=== PATIENT | male | born 1990 | race Caucasian/White ===

== ENCOUNTER 2017-01-09 18:00 | Emergency (ER) | payer SELFPAY ==
[~2017-01-09] VITALS: Ht 188 cm; Wt 102.9 kg
[~2017-01-09 18:00] MED LIST: CHLO0.12 MT; IMTUNK; ISOT40CA8 PO
[2017-01-09 18:02] VITALS: TEMP 36.9; Ht 188 cm; Wt 102.9 kg
--- NOTE | 2017-01-09 18:40 | EMERGENCY ROOM VISIT NOTE ---
History Report prepared by Amy: nAibal Stokes Under the Supervision of: Dr. Charlene Ledesma D.O. First contact with patient: 18:06 Chief Complaint: ILLNESS Stated Complaint: RASH,ITCHING,COUGHING,TIREDNESS History of Present Illness The patient is a 26 year old male who presents to the Emergency Room with complaints of worsening rashes that began a week ago. He states that he began to experience a productive cough with yellow mucous, congestion, aching sensation, and feet pain for almost three weeks. The patient states that around a week ago he noticed lumps on the side of his and balls of his feet. He states that he also noticed waxing/ waning pruritic rashes to his biceps, forearms, and sides of his abdomen. The patient states that the rash does not form until around noon when he notices red dots and erythema. He states that around 1400, a purple line forms. The patient states that the abdominal rash is worsening and the erythema around the rash waxes and wanes. He states that he noticed his wrist developed a rash last night and this morning. He states that he used Cortisone and DayQuil/ NyQuil, but denies any relief of symptoms. He states that he his worried his symptoms are due to Gout since he has a family history of Gout. The patient denies that the lumps are worsened or change with his diet. He admits that he has also been experiencing eye lid swelling for the last four years, which he had seen nine optometrists for. 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 He states that he fishes every week and checks for ticks frequently. The patient also states that he goes to the gym every day. He admits to occasionally drinking alcohol. The patient denies any family history of autoimmune diseases. He is accompanied by his mother who states that he had normal shots as a child. The patient denies bug bites, tick bites, being around someone sick, headache, fever, chills , change in vision, chest pain, joint pain or swelling, shortness of breath, nausea, vomiting, diarrhea, pain with urination, and melena. Source of History: patient, parent (mother) Onset: a week ago Position: arm (bilateral), abdomen Quality: other (pruritic) Timing: worsening Modifying Factors (Relieving): other (Cortisone, NyQuil, DayQuil) Associated Symptoms: + cough, No fevers, No chills, No headache, No chest pain, No SOB, No nausea, No vomiting, No melena, No diarrhea, No urinary symptoms Note: Swelling of eyelids, lumps in feet bilaterally, general achiness. Review of Systems See HPI for pertinent positives & negatives. A total of 10 systems reviewed and were otherwise negative. Past Medical & Surgical Medical Problems: (1) Head trauma (2) Hypertension Family History Diabetes mellitus FHx: cancer Gallbladder disease Gout Heart disease Hypertension Kidney disease Kidney stones Lung disease Seizures Social History Smoking Status: Never Smoker Alcohol Use: occasionally Drug Use: none Marital Status: single Housing Status: lives alone Occupation Status: unemployed Current/Historical Medications Scheduled PRN Coohxpjghulzerre-Oeapehcvhj-Wl (Vicks Nyquil Cold & Flu), 1 DOSE PO QPM PRN for COLD/FLU Dextromethorphan-Phenylephrine (Vicks Dayquil Cold & Flu), 1 CAP PO QAM PRN for COLD/FLU Allergies Coded Allergies: No Known Allergies (Unverified , 08/14/11) Physical Exam Vital Signs Date Time Temp Pulse Resp B/P (MAP) Pulse Ox O2 Delivery O2 Flow Rate FiO2 01/09/17 19:46 71 16 139/74 98 01/09/17 18:02 36.9 74 20 138/86 96 Room Air Physical Exam GENERAL: alert, well appearing, well nourished, no distress, non-toxic EYE EXAM: normal conjunctiva, PERRL and EOM's grossly intact OROPHARYNX: no exudate, no erythema, lips, buccal mucosa, and tongue normal and mucous membranes are moist NECK: supple, no nuchal rigidity, no adenopathy, non-tender LUNGS: Clear to auscultation. Normal chest wall mechanics HEART: no murmurs, S1 normal and S2 normal ABDOMEN: abdomen soft, non-tender, normo-active bowel sounds, no masses, no rebound or guarding. BACK: Back is symmetrical on inspection and there is no deformity, no midline tenderness, no CVA tenderness. SKIN: Blotchy, circular, macular, erythematous rash to his bilateral proximal upper extremities along the medial. His left is greater than the right. There is mild central clearing. No vesicles, petechia, or bullae. Left lateral mid abdomen in left flank area of erythema. No vesicles, petechiae, bullae, or induration. Nontender. No increased warmth. UPPER EXTREMITIES: upper extremities are grossly normal. LOWER EXTREMITIES: No pitting edema. NEURO EXAM: Normal sensorium, cranial nerves II-XII grossly intact, normal speech, no gross weakness of arms, no gross weakness of legs. No drift. Finger to nose intact. Gross sensation intact. Medical Decision & Procedures Laboratory Results 01/09/17 18:47 Red Blood Count 5.43, Mean Corpuscular Volume 90.2, Mean Corpuscular Hemoglobin 30.9, Mean Corpuscular Hemoglobin Concent 34.3, Mean Platelet Volume 9.3, Neutrophils (%) (Auto) 68.4, Lymphocytes (%) (Auto) 21.7, Monocytes (%) (Auto) 7.3, Eosinophils (%) (Auto) 1.8, Basophils (%) (Auto) 0.4, Neutrophils # (Auto) 5.47, Lymphocytes # (Auto) 1.73, Monocytes # (Auto) 0.58, Eosinophils # (Auto) 0.14, Basophils # (Auto) 0.03 01/09/17 18:47 Test 01/09/17 18:47 White Blood Count 7.98 K/uL (4.8-10.8) Red Blood Count 5.43 M/uL (4.7-6.1) Hemoglobin 16.8 g/dL (14.0-18.0) Hematocrit 49.0 % (42-52) Mean Corpuscular Volume 90.2 fL (80-100) Mean Corpuscular Hemoglobin 30.9 pg (25-34) Mean Corpuscular Hemoglobin Concent 34.3 g/dl (32-36) Platelet Count 159 K/uL (130-400) Mean Platelet Volume 9.3 fL (7.4-10.4) Neutrophils (%) (Auto) 68.4 % Lymphocytes (%) (Auto) 21.7 % Monocytes (%) (Auto) 7.3 % Eosinophils (%) (Auto) 1.8 % Basophils (%) (Auto) 0.4 % Neutrophils # (Auto) 5.47 K/uL (1.4-6.5) Lymphocytes # (Auto) 1.73 K/uL (1.2-3.4) Monocytes # (Auto) 0.58 K/uL (0.11-0.59) Eosinophils # (Auto) 0.14 K/uL (0-0.5) Basophils # (Auto) 0.03 K/uL (0-0.2) RDW Standard Deviation 39.1 fL (36.4-46.3) RDW Coefficient of Variation 12.0 % (11.5-14.5) Immature Granulocyte % (Auto) 0.4 % Immature Granulocyte # (Auto) 0.03 K/uL (0.00-0.02) Anion Gap 6.0 mmol/L (3-11) Est Creatinine Clear Calc Drug Dose 155.1 ml/min Estimated GFR () 131.0 Estimated GFR (Non- 113.0 BUN/Creatinine Ratio 22.3 (10-20) Uric Acid 4.9 mg/dl (2.6-7.2) Calcium Level 9.1 mg/dl (8.5-10.1) Lyme Disease IgG Antibody NEG (NEG) Lyme Disease IgM Antibody NEG (NEG) Monoscreen NEG (NEG) Laboratory results per my review. ED Course 1807: The patient was evaluated in room C09. A complete history and physical exam was performed. 1957: Upon reevaluation, the patient is feeling better. I discussed the findings and the treatment plan with the patient. He verbalizes agreement and understanding. The patient was discharged home. Medical Decision The differential diagnosis includes but is not limited to etiologies such as contact dermatitis, viral exanthem, urticaria, allergic reaction, Barillas- Abdi syndrome, toxic epidermal necrolysis, erythema multiforme, cellulitis, scabies, HSV, varicella, zoster, eczema, staph scalded skin syndrome, fungal infection, as well as others were entertained. Pt well appearing here. No overt URI symptoms on exam, lungs clear, doubt pneumonia, sinusitis, pharyngitis, aom. Doubt SJS/TEN, EM, erythema multiforme. Discussed trial of antifungal given location. Pt not immunocompromised and no hx in him or family for rheumatologic condition. Discussed f/u with dermatology, opthamology, sx to watch/return for, he and mom verbalized understanding and were agreeable with plan. All questions answered at bedside. Medication Reconcilliation Current Medication List: was personally reviewed by me Blood Pressure Screening Patient's blood pressure: Elevated blood pressure Blood pressure disposition: Elevated BP felt to be situational Impression Primary Impression: Tinea corporis Scribe Attestation The scribe's documentation has been prepared under my direction and personally reviewed by me in its entirety. I confirm that the note above accurately reflects all work, treatment, procedures, and medical decision making performed by me. Departure Information Dispostion Home / Self-Care Referrals No Doctor, Assigned (PCP) Forms HOME CARE DOCUMENTATION FORM, IMPORTANT VISIT INFORMATION, WORK / SCHOOL INSTRUCTIONS Patient Instructions [facility] Additional Instructions Please try using an anti-fungal cream for the red/rash areas as directed and if no improvement follow-up with dermatology. Please make sure your skin is completely dry before getting dressed. Please consider follow-up with opthamology regarding your intermittent eye symptoms also. If you develop a worsening rash, fevers, trouble breathing, purple spots on the skin, bleeding from any site, abdominal pain, or you have any other concerns, please return to the emergency room.
[2017-01-09 18:55] LABS: BASO % 0.4 %; BASO ABS # 0.03 K/uL (0-0.2); COMPLETE YES; EOS % 1.8 %; IG% 0.4 %; LYMPH % 21.7 %; LYMPH ABS # 1.73 K/uL (1.2-3.4); MEAN CELL VOLUME 90.2 fL (80-100); MEAN CORPUSCULAR HEMOGLOBIN 30.9 pg (25-34); MEAN CORPUSCULAR HGB CONC 34.3 g/dl (32-36); MEAN PLATELET VOLUME 9.3 fL (7.4-10.4); MONO % 7.3 %; NEUT % 68.4 %; PLATELET COUNT 159 K/uL (130-400); RED BLOOD COUNT 5.43 M/uL (4.7-6.1); WHITE BLOOD COUNT 7.98 K/uL (4.8-10.8)
[2017-01-09 19:14] LABS: BUN/CREATININE RATIO 22.3 (10-20); CALCIUM 9.1 mg/dl (8.5-10.1); CREATININE 0.94 mg/dl (0.60-1.40); POTASSIUM 3.9 mmol/L (3.5-5.1); URIC ACID 4.9 mg/dl (2.6-7.2)
[2017-01-09] MEDS ORDERED: DEXT1LIQ36 PO (19:39)
[2017-01-09] MEDS ORDERED: DEXT1CAP9 PO (19:39)
[2017-01-09 19:46] VITALS: BP 139/74; PULSE 71; O2SAT 98
[2017-01-09 19:55] LABS: LYME DISEASE AB IGG NEG (NEG)
[2017-01-09 19:56] LABS: LYME DISEASE AB IGM NEG (NEG)
== END 2017-01-09 20:18 | disposition home or self-care (01) ==
LOC: C.EDB 18:01 → C.EDC 20:18
DX: B35.4 Tinea corporis (principal); I10 Essential (primary) hypertension; Z83.3 Family history of diabetes mellitus; Z82.49 Family history of ischemic heart disease and other diseases of the circulatory system; Z82.0 Family history of epilepsy and other diseases of the nervous system